=== PATIENT | male | born 1990 | race Two or more races ===

== ENCOUNTER 2021-07-12 17:44 | Emergency (ER) | payer OTHER ==
[2021-07-12 18:06] VITALS: BP 115/70; PULSE 81; TEMP 98.7; BMI 24.0
== END 2021-07-12 19:13 | disposition home or self-care (01) ==
LOC: JER 17:44
DX: M79.10 Myalgia, unspecified site (principal); J02.9 Acute pharyngitis, unspecified; R10.9 Unspecified abdominal pain
CPT/HCPCS: 99281-25